=== PATIENT | female | born 1990 | race Caucasian/White ===

== ENCOUNTER 2023-05-24 12:38 | Emergency (ER) | payer BC, SELFPAY ==
[2023-05-24] VITALS (8 sets, daily range): BP systolic 111–135; BP diastolic 74–96; PULSE 66–80; RESP 16–18; TEMP 36.1; O2SAT 97–100
--- NOTE | 2023-05-24 12:44 | ECG_ITS ---
Measurements Intervals [place] Rate: 62 P: 27 CA: 138 QRS: 17 QRSD: 93 T: 35 QT: 387 QTc: 396 Interpretive Statements SINUS RHYTHM LOW QRS VOLTAGE IN PRECORDIAL LEADS [QRS DEFLECTION < 1.0 mV IN CHEST LEADS] BORDERLINE ECG NO PREVIOUS ECG AVAILABLE FOR COMPARISON Electronically Signed On 05-24-2023 17:22:39 CDT by Jaime Evans M.D.
[2023-05-24 13:04] LABS: Basophils Absolute Auto 0.1 K/mm3 (0.0-0.1); Basophils Percent Auto 0.8 % (0.2-1.2); Eosinophils Absolute Auto 0.2 K/mm3 (0-0.3); Eosinophils Percent Auto 3.1 % (0-4.4); Hematocrit 47.7 % (37.0-47.0); Hemoglobin 15.9 g/dL (12.0-15.0); Immature Granulocyte Absolute 0.02 K/mm3 (0.00-0.031); Immature Granulocyte Percent A 0.3 % (0-0.5); Lymphocytes Absolute Auto 1.99 K/mm3 (0.9-3.2); Lymphocytes Percent Auto 32.4 % (18.3-44.2); Mean Corpuscular HGB Conc 33.3 g/dl (32-36); Mean Corpuscular Hemoglobin 29.1 pg (26-34); Mean Corpuscular Volume 87.2 fl (80-100); Monocytes Absolute Auto 0.4 K/mm3 (0.1-0.6); Monocytes Percent Auto 6.8 % (2.6-8.5); Neutrophils Absolute Auto 3.5 K/mm3 (1.3-6.7); Neutrophils Percent Auto 56.6 % (45.5-73.1); Platelet Count Result 216 k/mm3 (150-375); Red Blood Count 5.47 M/mm3 (4.2-5.4); Red Cell Distribution Width 12.5 % (11.5-14.5); White Blood Count 6.1 K/mm3 (4.5-10.0)
[2023-05-24 13:20] LABS: Alanine Aminotransferase 21 U/L (6-35); Albumin Level 4.5 g/dL (3.5-5.1); Alkaline Phosphatase 82 U/L (38-126); Anion Gap 6 mmol/L (8-16); Aspartate Amino Transferase 24 U/L (14-36); Bilirubin,Total 0.5 mg/dL (0.2-1.3); Blood Urea Nitrogen 12 mg/dL (7-17); Calcium 9.1 mg/dL (8.4-10.2); Carbon Dioxide 28 mmol/L (22-30); Chloride 104 mmol/L (98-107); Estimated CRCL calculation 104 ml/min; Estimated Glomerular Filt Rate > 60; Glucose 100 mg/dL (65-110); Potassium 3.9 mmol/L (3.4-5.0); Sodium 138 mmol/L (137-145)
--- NOTE | 2023-05-24 16:36 | ED.DIZZY ---
HPI - Dizziness General Chief Complaint: Dizziness Stated Complaint: Low BP, dizzy Time Seen by Provider: 05/24/23 15:58 History of Present Illness HPI Narrative: 33-year-old female present to the emergency department for evaluation of lightheaded dizziness this been going on for the last few days. Patient was at work this morning and the symptoms worsen. At work they checked her blood pressure and she was found to have a systolic blood pressure of 100. Patient does feel symptomatic when bending over. Patient denies any associated chest pain or shortness of breath. Patient denies any recent nausea vomiting or diarrhea. Patient states she does feel improved at this time. Related Data Allergies Allergy/AdvReac Type Severity Reaction Status Date / Time ibuprofen Allergy Unknown Verified 05/24/23 16:01 iodine Allergy Difficulty Verified 05/24/23 15:59 Breathing Review of Systems Review of Systems: All systems reviewed & are unremarkable except as noted in HPI and below Exam Narrative: APPEARANCE: Well appearing, no pain, no distress, well-nourished. HEAD: normocephalic, atraumatic. EYES: PERRLA/EOMI, conjunctivae clear. Nystagmus when looking to the right NOSE: Normal no drainage NECK: Supple. No adenopathy, no masses. RESPIRATORY: Airway patent, respirations nonlabored. Clear to auscultation bilaterally, no rales, rhonchi, wheezing. CARDIOVASCULAR: Regular rate and rhythm without murmurs rubs or gallops. ABDOMINAL: Soft, nontender, nondistended, normal bowel sounds MUSCULOSKELETAL: Moves all extremities. Strength/ROM intact, No edema, No calf tenderness. NEURO: Alert. Cranial nerves II through XII intact. Grossly intact SKIN: Warm, dry. Normal Color Course Course Emergency Course: 3-year-old female present emerged department for evaluation of dizziness. Patient does describe symptoms of vertigo. Patient's orthostatic vitals were normal but patient still had some dizziness. Patient's symptoms did resolve with meclizine. Patient is afebrile with no leukocytosis and a stable hemoglobin. No significant abnormalities on her CMP. EKG showed normal sinus rhythm with normal axis no ectopy. Patient was updated on the diagnosis of vertigo and encouraged of close follow-up with her primary care physician. Patient was also provided meclizine for symptom control as needed at home. All question concerns were addressed. Vital Signs Vital signs: Vital Signs Temperature 97.0 F L 05/24/23 12:40 Pulse Rate 66 05/24/23 12:40 Respiratory Rate 18 05/24/23 12:40 Blood Pressure 135/86 05/24/23 12:40 Pulse Oximetry 100 05/24/23 12:40 Oxygen Delivery Room Air 05/24/23 12:40 Temperature 97.0 F L 05/24/23 12:40 Pulse Rate 79 05/24/23 18:30 Respiratory Rate 16 05/24/23 18:30 Blood Pressure 120/87 05/24/23 18:30 Pulse Oximetry 97 05/24/23 18:30 Oxygen Delivery Room Air 05/24/23 12:40 MDM - Dizziness Lab Data 05/24/23 12:57 05/24/23 12:57 Labs: Lab Results 05/24/23 Range/Units 12:57 WBC 6.1 (4.5-10.0) K/mm3 RBC 5.47 H (4.2-5.4) M/mm3 Hgb 15.9 H (12.0-15.0) g/dL Hct 47.7 H (37.0-47.0) % MCV 87.2 (80-100) fl MCH 29.1 (26-34) pg MCHC 33.3 (32-36) g/dl RDW 12.5 (11.5-14.5) % Plt Count 216 (150-375) k/mm3 MPV 10.0 (7.4-10.4) fl Immature Gran % (Auto) 0.3 (0-0.5) % Neut % (Auto) 56.6 (45.5-73.1) % Lymph % (Auto) 32.4 (18.3-44.2) % [place] % (Auto) 6.8 (2.6-8.5) % Eos % (Auto) 3.1 (0-4.4) % Baso % (Auto) 0.8 (0.2-1.2) % Lymph # (Auto) 1.99 (0.9-3.2) K/mm3 [place] # (Auto) 0.4 (0.1-0.6) K/mm3 Eos # (Auto) 0.2 (0-0.3) K/mm3 Baso # (Auto) 0.1 (0.0-0.1) K/mm3 Abs Immat Gran (auto) 0.02 (0.00-0.031) K/mm3 Absolute Neuts (auto) 3.5 (1.3-6.7) K/mm3 Absolute Nucleated RBC 0.0 (0.0-0.012) K/mm3 Nucleated RBC % 0.0 (0.0-0.2) % Sodium 138 (137-145) mmol/L Potassium 3.9 (3.4-5.0) mmol
[2023-05-24] MEDS: SODIUM CHLORIDE 0.9% IV 1,000 ML 999 ML IV CONT (16:53)
[2023-05-24] MEDS: MECLIZINE HCL 25 MG TABLET PO (17:38)
== END 2023-05-24 18:30 | disposition home or self-care (01) ==
PROVIDERS: Emergency Provider Emergency Medicine
DX: R42 Dizziness and giddiness (principal); R94.31 Abnormal electrocardiogram [ECG] [EKG]
CPT/HCPCS: 36415; 80053; 81025; 85025; 93005; 99284; A9270; J7030